=== PATIENT | male | born 1965 | race Caucasian/White ===

== ENCOUNTER 2017-01-30 06:51 | Emergency (ER) | payer BC ==
[~2017-01-30] VITALS: Ht 165.1 cm; Wt 67.0 kg
[2017-01-30 07:03] VITALS: BP 159/85; PULSE 67; RESP 16; TEMP 97.7; O2SAT 97
[2017-01-30] MEDS ORDERED: FLUORESCEIN SOD 1 MG STRIP RIGHT EYE ONE (07:15)
[2017-01-30] MEDS ORDERED: PROPARACAINE HCL 0.5% OPHT SOLN 15 ML BTL RIGHT EYE ONE (07:15)
--- NOTE | 2017-01-30 07:57 | PD ---
HPI Chief Complaint: Eye Problems/Injury Time Seen by Provider: 07:35 Travel History International Travel<30 days: No Contact w/Intl Traveler<30days: No Traveled to known affect area: No History of Present Illness HPI Armando is a 51 year old male who presents to the ED feeling as if something is in his right eye. Yesterday while at work a co-worker was blowing the sidewalk and something flew into his right eye. He works for a local [employer]. He wiped his eye and used contact solution to attempt to clean it. Later that evening his eye was still irritated, red and swollen. He attempted to remove his contact but is unsure whether he removed his right contact successfully. His symptoms continued this morning and prompted him to come to the ED. He denies any other acute symptoms. Last tetanus vaccine was 3 years ago. Modifying Factors: None Associated Signs & Symptoms: Foreign body sensation in the right eye, redness Risk Factors: None PFSH Past Medical History Medical History: Denies Significant Hx Tetanus Vaccination: < 5 Years Influenza Vaccination: Yes ?: Not Social History Alcohol Use: No Tobacco Use: Yes Allergies-Medications (Allergen,Severity, Reaction): Coded Allergies: No Known Allergies (Unverified , 01/30/17) Reported Meds & Prescriptions Reported Meds & Active Scripts Active No Active Prescriptions or Reported Medications Review of Systems Except as stated in HPI: all other systems reviewed are Neg Physical Exam Narrative GENERAL: Well-developed middle age white male patient currently in mild distress. Awake and oriented 3. SKIN: Warm and dry. HEAD: Normocephalic. EYES: Right eye erythematous with increased drainage. No scleral icterus. There is significant ecchymosis. If floor seen eye exam was done and No corneal abrasions, ulcers, or foreign bodies were identified. No contact or retained foreign bodies. PERRL. NECK: Supple, trachea midline. No JVD or lymphadenopathy. CARDIOVASCULAR: Regular rate and rhythm without murmurs, gallops, or rubs. RESPIRATORY: Breath sounds equal bilaterally. No accessory muscle use. GASTROINTESTINAL: Abdomen soft, non-tender, nondistended. MUSCULOSKELETAL: No cyanosis, or edema. BACK: Nontender without obvious deformity. No CVA tenderness. Data Data Last Documented VS Vital Signs Date Time Temp Pulse Resp B/P (MAP) Pulse Ox O2 Delivery O2 Flow Rate FiO2 01/30/17 07:03 97.7 67 16 159/85 (109) 97 Orders Orders Proparacaine 0.5% Opth Soln (Alcaine 0.5 (01/30/17 07:15) Fluorescein Strip ([id number]-C-Tfdiko A.T.) (01/30/17 07:15) MDM Medical Decision Making Medical Screen Exam Complete: Yes Emergency Medical Condition: Yes Medical Record Reviewed: Yes Differential Diagnosis Corneal abrasions versus conjunctivitis versus retained foreign bodies versus corneal ulcers Narrative Course I do not see any signs of contact lens retention or retained foreign bodies. I do not see any signs of foreign body or corneal abrasions. Tetanus is up-to- date. At this point, my plan would be to release the patient with follow-up to ophthalmology. We will give him antibiotic drops. Return for any worsening in pain, vision change, or new symptoms as needed. The plan has been discussed with him and he states understanding. Diagnosis Primary Impression: Corneal irritation of right eye Referrals: Sabi Ford MD Med/Other Pt SpecificInfo: Prescription(s) given Scripts Bacitracin-Polymyxin B Opth Oint (Bacitracin-Polymyxin B Opth Oint) 500-10,000 Unit/Gm Oint 1 APPLIC RIGHT EYE Q3H for Infection, #3.5 GM 0 Refills Prov: Juancarlos Loomis MD 01/30/17 Disposition: 01 DISCHARGE HOME Condition: Stable Juancarlos Loomis MD Jan 30, 2017 07:57
[2017-01-30] MEDS ORDERED: POLY3.5O RIGHT EYE (08:12)
== END 2017-01-30 08:19 | disposition home or self-care (01) ==
LOC: PHEFT 06:51
DX: H57.11 Ocular pain, right eye (principal); Z72.0 Tobacco use
CPT/HCPCS: 99283